=== PATIENT | female | born 1955 | race Caucasian/White ===

== ENCOUNTER 2020-10-16 08:53 | Observation (INO) | payer MEDICARE ==
[~2020-10-16] VITALS: Ht 177.8 cm; Wt 97.0 kg
--- NOTE | 2020-10-16 08:55 | NUR ---
PT TO ROOM WITH SLOW STEADY GAIT
--- NOTE | 2020-10-16 10:00 | NUR ---
GAVE REPORT TO PINO
[2020-10-16] MEDS ORDERED: NORVASC5 M1 PO (10:01)
[2020-10-16] MEDS ORDERED: HYDROXYCHLOR200 M1 PO (10:02)
[2020-10-16] MEDS ORDERED: CLOPIDOGREL75 MG PO (10:02)
[2020-10-16] MEDS ORDERED: BUT/APAP/CA3 PO (10:02)
[2020-10-16] MEDS ORDERED: FUROSEMIDE20 MG PO (10:02)
[2020-10-16 10:05] LABS: HEMATOCRIT 43.3 % (37.0-47.0); HEMOGLOBIN 14.5 g/dl (12.0-16.0); IMMATURE GRANULOCYTES 0.6 % (0.0-5.0); MEAN CELL VOLUME 90.2 fL CALC (80.0-100.0); MEAN CORPUSCULAR HGB 30.2 pG CALC (26.0-32.0); MEAN CORPUSCULAR HGB CONC 33.5 g/dL CAL (32.0-36.0); NEUT# 6.01 thou/uL (2.00-7.15); RED BLOOD COUNT 4.8 mill/uL (4.20-5.60); RED CELL DISTRI WIDTH 13.4 % (11.5-15.5)
[2020-10-16] MEDS ORDERED: ISOSORBID1 PO (10:05)
[2020-10-16] MEDS ORDERED: METOPROL TAR25 MG PO (10:06)
[2020-10-16] MEDS ORDERED: NASONEX50 MCG/ACT (10:08)
[2020-10-16] MEDS ORDERED: NITROGLYCERIN0.4 MG (10:09)
[2020-10-16] MEDS ORDERED: TAMSULOSIN HCL0.4 MG PO (10:10)
[2020-10-16] MEDS ORDERED: TIZANIDINE HCL2 MG PO (10:10)
[2020-10-16] MEDS ORDERED: PREDNISONE10 MG PO (10:13)
[2020-10-16] MEDS ORDERED: LISINOPRIL20 MG PO (10:16)
[2020-10-16] MEDS ORDERED: GINGER ROOT PO (10:16)
[2020-10-16] MEDS ORDERED: METFORMIN500 M2 PO (10:16)
[2020-10-16 10:17] LABS: ALBUMIN 3.7 g/dL (3.2-5.0); ALKALINE PHOSPHATASE 82 u/l (38-126); ANION GAP 12 (6-22 (CALC)); BILIRUBIN, TOTAL 0.4 mg/dL (0.0-1.4); BUN 24 mg/dL (8-23); BUN/CREATININE RATIO 24 (12-20 (CALC)); CARBON DIOXIDE 27 mmol/l (22-30); CHLORIDE 98 mmol/l (95-108); GFR 56 ML/MIN (>=60 (CALC)); GFR FOR AFR.AMER. > 60 ML/MIN (>=60 (CALC)); LIPASE 215 u/l (23-300); SGOT/AST 25 u/l (9-36); SODIUM 133 mmol/l (137-146); TOTAL PROTEIN 6.5 g/dL (6.3-8.2)
[2020-10-16] MEDS ORDERED: GLIPIZIDE10 MG PO (10:17)
[2020-10-16] MEDS ORDERED: CYCLOBENZAPR5 MG PO (10:18)
[2020-10-16] MEDS ORDERED: D350 MCG (10:18)
[2020-10-16] MEDS ORDERED: B121000 MC1 (10:19)
[2020-10-16 10:22] LABS: PROTHROMBIN TIME 10.1 SECONDS (9.0-12.5)
[2020-10-16 10:24] LABS: D-DIMER 1.59 mg/L (0.19-0.60)
--- NOTE | 2020-10-16 11:30 | NUR ---
PT RESTING IN BED, STILL ITCHING BUT LESS
[2020-10-16 11:55] LABS: URINE BILIRUBIN - DIPSTICK NEGATIVE (NEGATIVE); URINE BLOOD DIPSTICK NEGATIVE (NEGATIVE); URINE COLOR YELLOW; URINE GLUCOSE - DIPSTICK >=1000 mg/dL (NEGATIVE); URINE KETONE NEGATIVE (NEGATIVE); URINE LEUK ESTERASE NEGATIVE (NEGATIVE); URINE PH 5.5 (4.5-8.0); URINE PROTEIN - DIPSTICK NEGATIVE (NEG-TRACE); URINE SPECIFIC GRAVITY <=1.005; URINE UROBILINOGEN - DIPSTICK 0.2 E.U./dL (0.2)
[2020-10-16 12:00] LABS: URINE NITRITE - DIPSTICK NEGATIVE (Negative)
--- NOTE | 2020-10-16 12:30 | NUR ---
ATTEMPTED REPORT TO MS RN, BUSY WITH MD WILL CALL BACK
--- NOTE | 2020-10-16 12:45 | NUR ---
ATTEMPTED REPORT TO MS RN, HAVING A RAPID RESPONSE
--- NOTE | 2020-10-16 13:00 | NUR ---
ATTEMPTED REPORT, RN IN PT ROOM, WILL CALL BACK
--- NOTE | 2020-10-16 13:37 | NUR ---
ATTEMPTED REPORT, RN IN ROOM, WILL CALL ER BACK
--- NOTE | 2020-10-16 14:15 | NUR ---
REPORT RECEIVED FROM PINO IN ED, PT TRANSPORTED TO UNIT VIA W/C BY ED STAFF, ALERT AND ORIENTED X 3, ORIENED TO ROOM AND CALL ALFONSO, C/O GENERALISED ITCHING, DENIES PAIN, TELE MONITOR IN PLACE, EDUCATED ON COMRESSION STOCKINGS AND STATED UNDERSTANDING, WILL CONTINUE TO MONITOR AND ADDRESS NEEDS.
[2020-10-16 15:30] VITALS: BP 136/73
[2020-10-16 19:00] VITALS: BP 118/67
--- NOTE | 2020-10-16 20:00 | NUR ---
PHYSICAL ASSESMENT COMPLETE. PT CURRENTLY DENIES PAIN OR DISCOMFORT. SCHEDULED MEDICATIONS AND PRN MEDICATION ADMINISTERED, SEE E-MAR. PT DENIES ANY NEEDS AT THIS TIME. PLAN OF CARE REVIEWED, PT DENIES QUESTIONS, VERBALIZES UNDERSTANDING. ITEMS WITHIN REACH, BED LOCKED IN LOW POSITION W/ BEDRAILS UP X2. CALL ALFONSO WITHIN REACH, AGREES TO CALL PRN.
--- NOTE | 2020-10-16 21:00 | NUR ---
CRITICAL HIGH GLOCOSE WAS VERIFIED BY A LAB DRAW. LAB DRAW REPORTED 463. CALLED DR VANE SHELBY. DR ORDERED 15 UNITS LEVEMIR, AND HUMALOG 6 UNITS PER SLIDING SCALE SCHEDULED AT 2100. WILL RECHECK AND MONITOR.
--- NOTE | 2020-10-16 22:00 | NUR ---
PHYSICAL ASSESMENT COMPLETE. PT CURRENTLY DENIES PAIN OR DISCOMFORT. PTS GLUCOSE IS CRITICALLY HIGH AT 490. SCHEDULED MEDICATIONS AND PRN MEDICATION ADMINISTERED, SEE E-MAR. PT DENIES ANY NEEDS AT THIS TIME. PLAN OF CARE REVIEWED, PT DENIES QUESTIONS, VERBALIZES UNDERSTANDING. ITEMS WITHIN REACH, BED LOCKED IN LOW POSITION W/ BEDRAILS UP X2. CALL ALFONSO WITHIN REACH, AGREES TO CALL PRN.
--- NOTE | 2020-10-16 23:12 | NUR ---
PTS GLUCOSE RECHECKED. [address] VANE SHELBY. 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 DR ORDERED RECHECK IN THE MORNING.
--- NOTE | 2020-10-17 | NUR ---
PT LAYING IN BED WITH EYES CLOSED, APPEARS TO BE SLEEPING, APPEARS COMFORTABLE AND IN NO DISTRESS. RESPIRATIONS REGULAR AND UNLABORED. ITEMS REMAIN WITHIN REACH, CALL ALFONSO REMAINS WITHIN REACH. BED REMAINS LOCKED AND IN LOW POSITION WITH BEDRAILS UP X2. WILL CONTINUE TO MONITOR.
[2020-10-17 00:14] VITALS: BP 128/71
[2020-10-17 04:30] VITALS: BP 107/65
[2020-10-17 05:13] LABS: CHOLESTEROL HDL RATIO 2.9 (<4.4 (CALC)); MAGNESIUM 2.1 mg/dL (1.6-2.3)
--- NOTE | 2020-10-17 05:44 | NUR ---
PT RESTING IN BED, NO SIGNS OF DISTRESS NOTED, RESP EVEN AND UNLABORED. PT VOICES NO NEEDS OR COMPLAINTS AT THIS TIME. CALL LIGHT IN REACH, CONTINUE TO MONITOR.
--- NOTE | 2020-10-17 07:49 | NUR ---
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 WILL CONTINUE TO MONITOR AND ADDRESS CONCERNS.
[2020-10-17 07:53] VITALS: BP 125/61
[2020-10-17 11:00] VITALS: BP 128/64
--- NOTE | 2020-10-17 12:00 | NUR ---
PT IN BED VERY ANXIOUS REQUESTING "SOMETHING FOR MY NERVES" MEDICAL TEAM NOTIFIED AND ADDRESSED CONCERN, ITCHING IMPROVED AFTER BEING MEDICATED, WILL CONTINUE TO MONITOR.
[2020-10-17 14:43] VITALS: BP 103/62
--- NOTE | 2020-10-17 15:30 | NUR ---
PT STATES SHE IS FEELING MUCH BETTER NOW, GETTING READY TO LEAVE FOR HOME, WILL CONTINUE TO MONITOR.
--- NOTE | 2020-10-17 16:39 | NUR ---
Discharge instructions given. Patient verbalizes understanding of same. Discharged in condition via Wheelchair to Home with friend. All belongings sent with pt.
== END 2020-10-17 14:30 | disposition home or self-care (01) ==
LOC: ED 08:53 → ED-I 11:30 → ED 11:47 → MS2 11:48
PROVIDERS: ADMIT Internal Medicine; ATTEND Internal Medicine
DX: R07.81 Pleurodynia (principal); L50.0 Allergic urticaria; I10 Essential (primary) hypertension; E11.65 Type 2 diabetes mellitus with hyperglycemia; E78.5 Hyperlipidemia, unspecified; F41.9 Anxiety disorder, unspecified; E87.2 Acidosis; M25.50 Pain in unspecified joint; Z79.52 Long term (current) use of systemic steroids; Z79.84 Long term (current) use of oral hypoglycemic drugs; Z20.822 Contact with and (suspected) exposure to COVID-19
CPT/HCPCS: G0378; Q9967

== ENCOUNTER 2021-05-26 10:47 | Emergency (ER) | payer MEDICARE ==
[~2021-05-26] VITALS: Ht 177.8 cm; Wt 90.9 kg
[~2021-05-26 10:47] MED LIST: B121000 MC1; BUT/APAP/CA3 PO; CLOPIDOGREL75 MG PO; CYCLOBENZAPR5 MG PO; D350 MCG; FUROSEMIDE20 MG PO; GINGER ROOT PO; GLIPIZIDE10 MG PO; HYDROXYCHLOR200 M1 PO; ISOSORBID1 PO; LISINOPRIL20 MG PO; METFORMIN500 M2 PO; METOPROL TAR25 MG PO; NASONEX50 MCG/ACT; NITROGLYCERIN0.4 MG; NORVASC5 M1 PO; PREDNISONE10 MG PO; TAMSULOSIN HCL0.4 MG PO; TIZANIDINE HCL2 MG PO
[2021-05-26] MEDS ORDERED: PERCOCET 5/325M1 TAB PO (14:07)
[2021-05-26 14:13] VITALS: BP 144/62
== END 2021-05-26 14:27 | disposition home or self-care (01) ==
LOC: ED 10:47
DX: M25.512 Pain in left shoulder (principal); I10 Essential (primary) hypertension; E11.9 Type 2 diabetes mellitus without complications; E78.1 Pure hyperglyceridemia; Z79.84 Long term (current) use of oral hypoglycemic drugs

== ENCOUNTER 2021-07-30 08:55 | Observation (INO) | payer MEDICARE ==
[~2021-07-30] VITALS: Ht 167.6 cm; Wt 97.0 kg
[~2021-07-30 08:55] MED LIST changes: -B121000 MC1; +B121000 MC1 PO; -CYCLOBENZAPR5 MG PO; +CYCLOBENZAPRINE10 MG PO; -D350 MCG; +PERCOCET 5/325M1 TAB PO; +VITAMIN D35000 UNIT PO
[2021-07-30 09:10] VITALS: BP 158/88
[2021-07-30 10:01] LABS: URINE BILIRUBIN - DIPSTICK NEGATIVE (NEGATIVE); URINE BLOOD DIPSTICK NEGATIVE (NEGATIVE); URINE COLOR YELLOW; URINE GLUCOSE - DIPSTICK >=1000 mg/dL (NEGATIVE); URINE KETONE TRACE mg/dL (NEGATIVE); URINE LEUK ESTERASE NEGATIVE (NEGATIVE); URINE PH 5.5 (4.5-8.0); URINE PROTEIN - DIPSTICK NEGATIVE (NEG-TRACE); URINE SPECIFIC GRAVITY 1.025; URINE UROBILINOGEN - DIPSTICK 0.2 E.U./dL (0.2)
[2021-07-30 10:05] LABS: URINE NITRITE - DIPSTICK NEGATIVE (Negative)
[2021-07-30 10:10] LABS: IMMATURE GRANULOCYTES 0.2 % (0.0-5.0); MEAN CELL VOLUME 95.4 fL CALC (80.0-100.0); MEAN CORPUSCULAR HGB 32.1 pG CALC (26.0-32.0); MEAN CORPUSCULAR HGB CONC 33.6 g/dL CAL (32.0-36.0); NEUT# 4.99 thou/uL (2.00-7.15); RED BLOOD COUNT 6.11 mill/uL (4.20-5.60); RED CELL DISTRI WIDTH 15.5 % (11.5-15.5)
[2021-07-30 10:14] LABS: ALBUMIN 4.1 g/dL (3.2-5.0); ALKALINE PHOSPHATASE 72 u/l (38-126); AMYLASE 138 u/l (30-110); ANION GAP 11 (6-22 (CALC)); BILIRUBIN, TOTAL 0.6 mg/dL (0.0-1.4); BUN 14 mg/dL (8-23); BUN/CREATININE RATIO 14 (12-20 (CALC)); CARBON DIOXIDE 26 mmol/l (22-30); CHLORIDE 104 mmol/l (95-108); GFR 55 ML/MIN (>=60 (CALC)); GFR FOR AFR.AMER. > 60 ML/MIN (>=60 (CALC)); LIPASE 1043 u/l (23-300); POTASSIUM 3.9 mmol/l (3.5-5.1); SODIUM 137 mmol/l (137-146)
[2021-07-30 10:15] LABS: ACT PARTIAL THROMBO TIME 24.1 SECONDS (20.0-32.5); INTERNATIONAL NORMALIZED RATIO 1.2 RATIO (0.7-1.3); PROTHROMBIN TIME 12.7 SECONDS (9.0-12.5); SGOT/AST 43 u/l (9-36)
[2021-07-30 10:43] LABS: HEMATOCRIT 58.3 % (37.0-47.0); HEMOGLOBIN 19.6 g/dl (12.0-16.0)
[2021-07-30] MEDS ORDERED: PROTONIX40 M2 PO (12:57)
[2021-07-30 14:06] VITALS: BP 158/88
[2021-07-30] MEDS ORDERED: FARXIGA5 MG (14:35)
[2021-07-30 15:05] VITALS: BP 148/65
[2021-07-30] MEDS ORDERED: TRULICITY3 MG/0.5 M (15:33)
[2021-07-30 19:15] VITALS: BP 137/61
[2021-07-31 05:03] VITALS: BP 149/72
[2021-07-31 05:21] LABS: MEAN CELL VOLUME 96.1 fL CALC (80.0-100.0); MEAN CORPUSCULAR HGB 32.6 pG CALC (26.0-32.0); RED BLOOD COUNT 3.89 mill/uL (4.20-5.60); RED CELL DISTRI WIDTH 14.5 % (11.5-15.5)
[2021-07-31 05:54] LABS: HEMATOCRIT 37.4 % (37.0-47.0); HEMOGLOBIN 12.7 g/dl (12.0-16.0)
[2021-07-31 06:10] LABS: ALKALINE PHOSPHATASE 48 u/l (38-126); AMYLASE 50 u/l (30-110); BUN 13 mg/dL (8-23); BUN/CREATININE RATIO 16 (12-20 (CALC)); CARBON DIOXIDE 23 mmol/l (22-30); CHLORIDE 108 mmol/l (95-108); CREATININE 0.8 mg/dL (0.5-1.0); GFR > 60 ML/MIN (>=60 (CALC)); GFR FOR AFR.AMER. > 60 ML/MIN (>=60 (CALC)); LIPASE 141 u/l (23-300); MAGNESIUM 1.6 mg/dL (1.6-2.3); SGOT/AST 45 u/l (9-36); SODIUM 138 mmol/l (137-146); TOTAL PROTEIN 6.8 g/dL (6.3-8.2)
[2021-07-31 06:18] LABS: ANION GAP 12 (6-22 (CALC)); POTASSIUM 4.7 mmol/l (3.5-5.1)
[2021-07-31 07:40] VITALS: BP 124/56
[2021-07-31 10:38] VITALS: BP 144/72
[2021-07-31 11:01] VITALS: BP 144/72
[2021-07-31] MEDS ORDERED: METHOTREXATE S2.5 MG PO (12:27)
[2021-07-31] MEDS ORDERED: FUROSEMIDE20 MG PO (12:30)
[2021-07-31] MEDS ORDERED: FOLIC ACID1 M1 PO (12:32)
[2021-07-31] MEDS ORDERED: EZETIMIBE10 MG PO (12:32)
[2021-07-31] MEDS ORDERED: PAROXETINE20 MG PO (12:34)
[2021-07-31 14:54] VITALS: BP 129/103
[2021-07-31 18:44] VITALS: BP 128/62
[2021-08-01 04:37] VITALS: BP 100/41
[2021-08-01 08:00] VITALS: BP 139/71
[2021-08-01 08:01] VITALS: BP 139/71
[2021-08-01] MEDS ORDERED: LEVEMIR100 UNIT SC (11:08)
[2021-08-01] MEDS ORDERED: METFORMIN500 M2 PO (11:08)
[2021-08-01] MEDS ORDERED: [UNRECOGNIZED DRUG - SUPPLY] SC (14:29)
[2021-08-01 14:30] VITALS: BP 130/84
[2021-08-01] MEDS ORDERED: LEVEMIR FL100 UNIT/M SC (14:55)
== END 2021-08-01 15:09 ==
LOC: ED 08:55 → ED-I 12:50 → ED 13:09 → MS2 13:10
PROVIDERS: ADMIT Internal Medicine; ATTEND Internal Medicine
DX: K85.90 Acute pancreatitis without necrosis or infection, unspecified (principal); E11.65 Type 2 diabetes mellitus with hyperglycemia; E86.0 Dehydration; D69.6 Thrombocytopenia, unspecified; I10 Essential (primary) hypertension; M06.9 Rheumatoid arthritis, unspecified; E78.00 Pure hypercholesterolemia, unspecified; L29.9 Pruritus, unspecified; T40.2X5A Adverse effect of other opioids, initial encounter; Z79.84 Long term (current) use of oral hypoglycemic drugs; Z85.828 Personal history of other malignant neoplasm of skin; Z79.899 Other long term (current) drug therapy
CPT/HCPCS: J1650; Q9967; S0164

== ENCOUNTER 2021-09-21 19:13 | Emergency (ER) | payer MEDICARE ==
[2021-09-21] VITALS (11 sets, daily range): BP systolic 119–177; BP diastolic 56–86
[~2021-09-21] VITALS: Ht 167.6 cm; Wt 95.6 kg
[~2021-09-21 19:13] MED LIST changes: +EZETIMIBE10 MG PO; +FARXIGA5 MG; +FOLIC ACID1 M1 PO; +LEVEMIR FL100 UNIT/M SC; +LEVEMIR100 UNIT SC; +METHOTREXATE S2.5 MG PO; +PAROXETINE20 MG PO; +PROTONIX40 M2 PO; +TRULICITY3 MG/0.5 M; +[UNRECOGNIZED DRUG - SUPPLY] SC
[2021-09-21] MEDS ORDERED: LEVEMIR100 UNIT SC (19:54)
[2021-09-21] MEDS ORDERED: MOTRIN400 MG/TAB PO (19:57)
[2021-09-21] MEDS ORDERED: ARAVA10 MG PO (19:58)
[2021-09-21 20:06] LABS: HEMATOCRIT 38.6 % (37.0-47.0); HEMOGLOBIN 12.8 g/dl (12.0-16.0); IMMATURE GRANULOCYTES 0.2 % (0.0-5.0); MEAN CELL VOLUME 94.8 fL CALC (80.0-100.0); MEAN CORPUSCULAR HGB 31.4 pG CALC (26.0-32.0); MEAN CORPUSCULAR HGB CONC 33.2 g/dL CAL (32.0-36.0); NEUT# 4.64 thou/uL (2.00-7.15); RED BLOOD COUNT 4.07 mill/uL (4.20-5.60); RED CELL DISTRI WIDTH 13.5 % (11.5-15.5)
[2021-09-21 20:15] LABS: ALKALINE PHOSPHATASE 88 u/l (38-126); AMYLASE 87 u/l (30-110); ANION GAP 15 (6-22 (CALC)); BILIRUBIN, TOTAL 0.4 mg/dL (0.0-1.4); BUN 14 mg/dL (8-23); BUN/CREATININE RATIO 14 (12-20 (CALC)); CARBON DIOXIDE 24 mmol/l (22-30); CHLORIDE 101 mmol/l (95-108); GFR FOR AFR.AMER. > 60 ML/MIN (>=60 (CALC)); GFR OTHER RACES 55 ML/MIN (>=60 (CALC)); POTASSIUM 3.9 mmol/l (3.5-5.1); SGOT/AST 34 u/l (9-36); SODIUM 136 mmol/l (137-146)
[2021-09-21 20:26] LABS: MYOGLOBIN 57 ng/mL (0 - 62)
[2021-09-21] MEDS ORDERED: FIORICET PO (21:43)
== END 2021-09-21 22:17 | disposition home or self-care (01) ==
LOC: ED 19:13
PROVIDERS: Emergency Medicine
DX: R51.9 Headache, unspecified (principal); E11.9 Type 2 diabetes mellitus without complications; R11.0 Nausea

== ENCOUNTER 2021-10-30 17:24 | Emergency (ER) | payer MEDICARE ==
[~2021-10-30] VITALS: Ht 167.6 cm; Wt 90.0 kg
[~2021-10-30 17:24] MED LIST changes: +ARAVA10 MG PO; +FIORICET PO; +MOTRIN400 MG/TAB PO
[2021-10-30 18:23] VITALS: BP 149/90
[2021-10-30 18:57] LABS: HEMATOCRIT 41.6 % (37.0-47.0); HEMOGLOBIN 13.7 g/dl (12.0-16.0); IMMATURE GRANULOCYTES 0.1 % (0.0-5.0); MEAN CELL VOLUME 89.7 fL CALC (80.0-100.0); MEAN CORPUSCULAR HGB 29.5 pG CALC (26.0-32.0); MEAN CORPUSCULAR HGB CONC 32.9 g/dL CAL (32.0-36.0); NEUT# 5.68 thou/uL (2.00-7.15); RED BLOOD COUNT 4.64 mill/uL (4.20-5.60); RED CELL DISTRI WIDTH 12.8 % (11.5-15.5)
[2021-10-30 19:09] LABS: ALBUMIN 3.9 g/dL (3.2-5.0); ALKALINE PHOSPHATASE 83 u/l (38-126); ANION GAP 11 (6-22 (CALC)); BUN 11 mg/dL (8-23); BUN/CREATININE RATIO 14 (12-20 (CALC)); CARBON DIOXIDE 27 mmol/l (22-30); CHLORIDE 102 mmol/l (95-108); CREATININE 0.8 mg/dL (0.5-1.0); GFR FOR AFR.AMER. > 60 ML/MIN (>=60 (CALC)); GFR OTHER RACES > 60 ML/MIN (>=60 (CALC)); POTASSIUM 3.5 mmol/l (3.5-5.1); SGOT/AST 26 u/l (9-36); SODIUM 136 mmol/l (137-146)
[2021-10-30 19:12] LABS: BILIRUBIN, TOTAL 0.7 mg/dL (0.0-1.4)
[2021-10-30] MEDS ORDERED: CYCLOBENZAPRINE10 MG PO (20:41)
== END 2021-10-30 21:45 | disposition home or self-care (01) ==
LOC: ED 17:24
PROVIDERS: Family Medicine
DX: M54.6 Pain in thoracic spine (principal); M54.50 Low back pain, unspecified; I10 Essential (primary) hypertension; E11.9 Type 2 diabetes mellitus without complications; E78.00 Pure hypercholesterolemia, unspecified; M48.56XD Collapsed vertebra, not elsewhere classified, lumbar region, subsequent encounter for fracture with routine healing; W18.2XXA Fall in (into) shower or empty bathtub, initial encounter; Y93.E1 Activity, personal bathing and showering; Y92.002 Bathroom of unspecified non-institutional (private) residence as the place of occurrence of the external cause; Z79.4 Long term (current) use of insulin

== ENCOUNTER 2023-05-24 19:03 | Emergency (ER) | payer MEDICARE ==
[~2023-05-24] VITALS: Ht 167.6 cm; Wt 81.6 kg
[2023-05-24 19:16] VITALS: BP 173/118
[2023-05-24] MEDS ORDERED: PRAVASTATIN SOD20 MG PO (19:59)
[2023-05-24] MEDS ORDERED: EZETIMIBE10 MG (20:00)
[2023-05-24] MEDS ORDERED: GABAPENTIN300 M2 PO (20:02)
[2023-05-24] MEDS ORDERED: XANAX0.5 MG PO (20:03)
[2023-05-24] MEDS ORDERED: FLEXERIL5 M1 PO (20:04)
[2023-05-24] MEDS ORDERED: LEFLUNOMIDE20 MG PO (20:06)
[2023-05-24] MEDS ORDERED: PRIMIDONE50 MG PO (20:07)
[2023-05-24] MEDS ORDERED: [UNRECOGNIZED DRUG - CODE] PO (20:08)
[2023-05-24] MEDS ORDERED: LOTREL1 CA2 PO (20:11)
[2023-05-24] MEDS ORDERED: ALENDRONATE35 MG PO (20:13)
[2023-05-24] MEDS ORDERED: [UNRECOGNIZED DRUG - SUPPLY] SI (20:15)
[2023-05-24 21:18] LABS: URINE BILIRUBIN - DIPSTICK Negative (NEGATIVE); URINE BLOOD DIPSTICK Negative (NEGATIVE); URINE GLUCOSE - DIPSTICK Negative (NEGATIVE); URINE KETONE Negative (NEGATIVE); URINE NITRITE - DIPSTICK Negative (Negative); URINE PROTEIN - DIPSTICK Negative (NEG-TRACE); URINE SPECIFIC GRAVITY 1.015; URINE UROBILINOGEN - DIPSTICK 0.2 E.U./dL (0.2)
[2023-05-24 21:19] LABS: BASO% 0.1 % (0-3); EOS% 2.7 % (0-8); HEMOGLOBIN 13.1 g/dl (12.0-16.0); IMMATURE GRANULOCYTES 0.1 % (0.0-5.0); LYMPH% 26.6 % (15-41); MEAN CELL VOLUME 91.5 fL CALC (80.0-100.0); MEAN CORPUSCULAR HGB 29.2 pG CALC (26.0-32.0); MONO% 8.1 % (2-13); NEUT# 4.22 thou/uL (2.00-7.15); NEUT% 62.4 % (42-76); RED BLOOD COUNT 4.48 mill/uL (4.20-5.60); RED CELL DISTRI WIDTH 13.9 % (11.5-15.5)
[2023-05-24 21:29] LABS: URINE COLOR Yellow; URINE LEUK ESTERASE Small (NEGATIVE); URINE SQUAMOUS EPITHELIAL CELL FEW EPI/hpf (0-FEW); URINE WBC 0-2 WBC/hpf (0-5)
[2023-05-24 21:38] LABS: ALKALINE PHOSPHATASE 89 u/l (38-126); ANION GAP 8 (6-22 (CALC)); BUN 14 mg/dL (8-23); BUN/CREATININE RATIO 17 (12-20 (CALC)); CARBON DIOXIDE 29 mmol/l (22-30); CHLORIDE 108 mmol/l (95-108); CREATININE 0.8 mg/dL (0.5-1.0); GFR FOR AFR.AMER. > 60 ML/MIN (>=60 (CALC)); GFR OTHER RACES > 60 ML/MIN (>=60 (CALC)); POTASSIUM 3.3 mmol/l (3.5-5.1); SGOT/AST 29 u/l (9-36); SODIUM 141 mmol/l (137-146); TOTAL PROTEIN 6.7 g/dL (6.3-8.2)
[2023-05-24 21:43] LABS: BILIRUBIN, TOTAL 0.4 mg/dL (0.02-1.3)
[2023-05-24 22:09] LABS: TSH, 3RD GENERATION 2.28 uIU/mL (0.47 - 4.68)
[2023-05-24] MEDS ORDERED: SULFAMETHOXAZOLE W/TRIMETHOPRI 1 COMBO TAB PO ONE (23:15)
[2023-05-25] MEDS ORDERED: BACTRIM DS1 TAB PO (00:10)
[2023-05-25 01:29] VITALS: BP 156/89
== END 2023-05-25 02:01 | disposition home or self-care (01) ==
LOC: ED 19:03
PROVIDERS: Family Medicine
DX: N39.0 Urinary tract infection, site not specified (principal); I10 Essential (primary) hypertension; E11.9 Type 2 diabetes mellitus without complications; E78.00 Pure hypercholesterolemia, unspecified; Z79.4 Long term (current) use of insulin